=== PATIENT | female | born 1985 ===

== ENCOUNTER 2018-04-17 10:34 | Inpatient (IN) | payer MEDICAID ==
[2018-04-17 12:05] LABS: BASO # 0.1 K/uL (0.0-0.2); BASO % 0.7 % (0.0-2.0); EOS # 0.2 K/uL (0.0-0.7); EOS % 2.7 % (0.0-4.0); LYMPH # 2.4 K/uL (1.0-4.3); MEAN CELL VOLUME 88.2 fl (81.0-99.0); MEAN CORPUSCULAR HEMOGLOBIN 28.5 pg (27.0-31.0); MEAN CORPUSCULAR HGB CONC 32.3 g/dL (33.0-37.0); MEAN PLATELET VOLUME 7.2 fl (7.2-11.7); MONO # 0.5 K/uL (0.0-0.8); NEUT # 3.6 K/uL (1.8-7.0); NEUT % 53.6 % (50.0-75.0); NRBC % 0.2 % (0.0-0.0); RBC 4.22 Mil/uL (3.80-5.20); RED CELL DISTRIBUTION WIDTH 14.6 % (11.5-14.5); WHITE BLOOD COUNT 6.8 K/uL (4.8-10.8)
[2018-04-17 12:11] LABS: ALB/GLOB RATIO 1.2 (1.0-2.1); ALBUMIN 4.2 g/dL (3.5-5.0); ALT/SGPT 42 U/L (9-52); AST/SGOT 36 U/L (14-36); BLOOD UREA NITROGEN 12 mg/dl (7-17); CALCIUM 9.4 mg/dL (8.4-10.2); GFR NON-AFRICAN AMERICAN > 60
--- NOTE | 2018-04-17 14:11 | ED PDOC ---
HPI: General Adult Time Seen by Provider: 04/17/18 10:43 Chief Complaint (Nursing): Lower Extremity Problem/Injury Chief Complaint (Provider): left sided numbness History Per: Patient History/Exam Limitations: no limitations Onset/Duration Of Symptoms: Days (4), Gradual Current Symptoms Are (Timing): Still Present Severity: Moderate Recently: Seen In ED Additional Complaint(s): 33yo female arrives via self c/o Left sided numbness she describes from under left breast encompassing trunk/back and proceeds down left side to Leg in stocking like distribution. She denies weakness, change in gait, balance, temperature sensation, trauma/falls or headache. No prior history of similar issues. No recent illnesses. Patient reports she went to [facility] on saturday had CT brain, EKG and labwork told all was normal. Has not seen PMD yet. PMD [place] in [place] Past Medical History Reviewed: Historical Data, Nursing Documentation, Vital Signs - Medical History PMH: No Chronic Diseases Denies: Chronic Kidney Disease - Family History Family History: States: Unknown Family Hx - Social History Current smoker - smoking cessation education provided: Yes - Home Medications Home Medications: Ambulatory Orders Medication Instructions Recorded RX: No Known Home Med 04/17/18 - Allergies Allergies/Adverse Reactions: Allergies Allergy/AdvReac Type Severity Reaction Status Date / Time No Known Allergies Allergy Verified 04/17/18 10:46 Review of Systems ROS Statement: Except As Marked, All Systems Reviewed And Found Negative Constitutional: Negative for: Fever, Chills ENT: Negative for: Throat Pain Cardiovascular: Negative for: Chest Pain, Palpitations Respiratory: Negative for: Cough, Shortness of Breath Gastrointestinal: Negative for: Nausea, Abdominal Pain Genitourinary Female: Negative for: Dysuria Musculoskeletal: Negative for: Neck Pain, Shoulder Pain, Back Pain, Hand Pain Skin: Negative for: Rash Neurological: Positive for: Numbness. Negative for: Weakness, Incoordination, Change in Speech, Confusion, Seizures, Altered Mental Status, Headache, Dizziness Psych: Negative for: Suicidal ideation Physical Exam - Reviewed Nursing Documentation Reviewed: Yes Vital Signs Reviewed: Yes - Physical Exam Appears: Positive for: Well, Non-toxic, No Acute Distress Head Exam: Positive for: ATRAUMATIC, NORMAL INSPECTION, NORMOCEPHALIC Skin: Positive for: Normal Color, Warm, DRY Eye Exam: Positive for: EOMI, Normal appearance, PERRL ENT: Positive for: Normal ENT Inspection Neck: Positive for: Normal, Painless ROM Cardiovascular/Chest: Positive for: Regular Rate, Rhythm Respiratory: Positive for: CNT, Normal Breath Sounds Gastrointestinal/Abdominal: Positive for: Normal Exam, Soft Back: Positive for: Normal Inspection Extremity: Positive for: Normal ROM Neurologic/Psych: Positive for: Alert, loss prevention detective II-XII, Motor/Sensory Deficits (?soft sensory deficity and loss 2 point discrimination L trunk and leg compared to right. strength 5/5 all ext, speech clear and fluent), Gait (stable). Negative for: Mood/Affect - Laboratory Results Result Diagrams: 04/17/18 11:50 04/17/18 11:50 - ECG ECG: Positive for: Interpreted By Me ECG Rhythm: Positive for: Normal QRS, Sinus Rhythm. 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 Disposition - Clinical Impression Clinical Impression: Paresthesia - Patient ED Disposition Is Patient to be Admitted: Transfer of Care Counseled Patient/Family Regarding: Studies Performed - Disposition Disposition: Transfer of Care Disposition Time: 15:00 Condition: FAIR Patient Signed Over To: Helder Hirsch
--- NOTE | 2018-04-17 15:19 | ED PDOC ---
- Laboratory Results Result Diagrams: 04/17/18 11:50 04/17/18 11:50 - ECG O2 Sat by Pulse Oximetry: 99 - Progress ED Course And Treament: 1519: Took over care from Dr. Dumont. Fu on MRI. Here with paresthesias. Head: IMPRESSION: Asymmetric few white matter lesions in the right centrum semiovale and andrea radiata are nonspecific. The differential considerations include demyelinating disease including multiple sclerosis, migraine headache effect, gliosis, premature early chronic microangiopathic changes, vasculitis and lines disease. Clinical correlation and follow-up is advised. Cervical: IMPRESSION: 1. Desiccation of the C6-7 disc and right paracentral disc protrusion which indents the ventral thecal sac without spinal canal stenosis. 2. No acute fracture or marrow infiltrative process. 3. Normal noncontrast MRI appearance of the thoracic cord without intrinsic signal abnormality. Thoracic: IMPRESSION: No acute fracture, spondylolysis or spondylolisthesis. Mild posterior disc bulges at L4-5 and L5-S1 without spinal canal stenosis. 1847: PCP Dr. Goldman. Spoke with Dr. Leyva. Wants pt. to be admitted for further evaluation considering MRI head findings. Dr. Chairez spoken to and will admit. Dr. Leyva does not want any additional tx/steroids at this time. Wants to confirm dx prior to tx. Disposition - Clinical Impression Clinical Impression: Paresthesia - POA Present On Arrival: None - Disposition Disposition: Hospitalized as Observation Patient Disposition Time: 18:54 Condition: FAIR
--- NOTE | 2018-04-17 17:48 | MRI ---
Date of service: 04/17/2018 PROCEDURE: MRI BRAIN WITHOUT CONTRAST HISTORY: L numbess x3 days COMPARISON: None available. TECHNIQUE: Multiplanar, multisequence MR images of the brain were obtained without intravenous contrast enhancement. FINDINGS: HEMORRHAGE: None DWI: No evidence of an acute or early subacute infarction. BRAIN PARENCHYMA: There are T2/FLAIR hyperintense foci in the right centrum semiovale and andrea radiata. There is no mass, mass effect or abnormal extra-axial fluid collection. The midline sagittal structures are normal. VENTRICLES: The ventricles are normal in size, shape and configuration. CRANIUM: There is normal bone marrow signal pattern. ORBITS: Grossly unremarkable. PARANASAL SINUSES/MASTOIDS: There is a retention cyst/polyp in the left maxillary sinus. There is a small retention cyst/polyp in the right posterior ethmoid air cells. The remaining included paranasal sinuses are clear. VASCULAR SYSTEM: There are normal signal voids in the larger intracranial arteries. OTHER FINDINGS: None. IMPRESSION: Asymmetric few white matter lesions in the right centrum semiovale and andrea radiata are nonspecific. The differential considerations include demyelinating disease including multiple sclerosis, migraine headache effect, gliosis, premature early chronic microangiopathic changes, vasculitis and lines disease. Clinical correlation and follow-up is advised.
--- NOTE | 2018-04-17 18:06 | MRI ---
Date of service: 04/17/2018 PROCEDURE: MR THORACIC SPINE WITHOUT CONTRAST HISTORY: L sided numbness COMPARISON: None available. TECHNIQUE: Multiecho multiplanar sequences were performed through the thoracic spine without the use of intravenous contrast. FINDINGS: ALIGNMENT: There is normal alignment of the thoracic vertebral bodies. There is normal thoracic kyphosis. VERTEBRA: Vertebral body heights are preserved. There is no acute fracture or bone destruction. MARROW: Marrow signal is within normal limits. PARASPINAL SOFT TISSUES: The paraspinous soft tissues are normal. CORD: The thoracic cord is normal in contour, caliber and has normal intrinsic signal. DISCS: There is desiccation of the C6-7 disc and right paracentral disc protrusion at T6-7 which indents the ventral thecal sac without spinal canal stenosis. The remaining disc heights are maintained. OTHER FINDINGS: None. IMPRESSION: 1. Desiccation of the C6-7 disc and right paracentral disc protrusion which indents the ventral thecal sac without spinal canal stenosis. 2. No acute fracture or marrow infiltrative process. 3. Normal noncontrast MRI appearance of the thoracic cord without intrinsic signal abnormality.
--- NOTE | 2018-04-17 18:15 | MRI ---
Date of service: 04/17/2018 PROCEDURE: MR LUMBAR SPINE WITHOUT CONTRAST HISTORY: L sided numbness COMPARISON: None available. TECHNIQUE: Multiecho multiplanar sequences were performed through the lumbar spine without the use of intravenous contrast. FINDINGS: There is normal alignment of the lumbar vertebral bodies. There is normal lumbar lordosis. There is no acute fracture, spondylolysis or spondylolisthesis. Bone marrow signal is within normal limits. The conus medullaris terminates at a normal level and the nerve roots of cauda equina are normal. T12-L1: No disc herniation, spinal canal stenosis or neural foraminal narrowing. L1-2: No disc herniation, spinal canal stenosis or neural foraminal narrowing. L2-3: No disc herniation, spinal canal stenosis or neural foraminal narrowing. L3-4: No disc herniation, spinal canal stenosis or neural foraminal narrowing. L4-5: Mild posterior disc bulge without spinal canal stenosis or neural foraminal narrowing. There is mild facet arthropathy. L5-S1: Mild posterior disc bulge without spinal canal stenosis or neural foraminal narrowing. There is mild facet arthropathy. OTHER FINDINGS: The paraspinous soft tissues are normal. Imaged portion of the retroperitoneum is within normal limits. IMPRESSION: No acute fracture, spondylolysis or spondylolisthesis. Mild posterior disc bulges at L4-5 and L5-S1 without spinal canal stenosis.
[2018-04-17] MEDS ORDERED: Oxycodone/Acetaminophen 5/325 mg Tab ONE (22:27)
--- NOTE | 2018-04-17 22:45 | CARD ---
APPROVED REPORT Date of service: 04/17/2018 EKG Measurement Heart [id number] <Conclusion> Normal sinus rhythm Normal ECG
[2018-04-17] MEDS: Oxycodone/Acetaminophen 5/325 mg Tab PO PRN (22:53)
[2018-04-17] MEDS ORDERED: Dextrose 5%/0.45% NS 1,000 ML IV SCH (23:45)
[2018-04-18] MEDS: Oxycodone/Acetaminophen 5/325 mg Tab PO PRN (06:02)
[2018-04-18 06:43] LABS: INR 1.1; PROTHROMBIN TIME 12.6 Seconds (9.8-13.1)
[2018-04-18 06:45] LABS: PARTIAL THROMBOPLASTIN TIME 37.2 Seconds (25.6-37.1)
[2018-04-18 11:38] LABS: T4 8.03 ug/dl (5.5-11.0)
[2018-04-18 11:51] LABS: T3 1.02 nmol/L (1.49-2.60)
--- NOTE | 2018-04-18 14:27 | CP.PCM.HP ---
History of Present Illness - History of Present Illness History of Present Illness: 33 YR OLD FEMALE ADMITTED BECAUSE OF PARESTHESIAS OF LOWER EXTREMITIES AND MRI COMPARTIBLE WITH MULTIPLE SCLEROSIS. UNREMARKABLE PAST HISTORY/FAMILY HISTORY NO HX OF SMOKING OR ALCOHOL OR DRUG USE Present on Admission - Present on Admission Any Indicators Present on Admission: No Past Patient History - Past Medical History & Family History Past Medical History?: Yes - Past Social History Smoking Status: Light Smoker < 10 Cigarettes Daily - CARDIAC Hx Cardiac Disorders: No Hx Hypertension: No - PULMONARY Hx Respiratory Disorders: No - NEUROLOGICAL Hx Neurological Disorder: No - HEENT Hx HEENT Problems: No - RENAL Hx Chronic Kidney Disease: No - ENDOCRINE/METABOLIC Hx Endocrine Disorders: No - HEMATOLOGICAL/ONCOLOGICAL Hx Blood Disorders: No Hx AIDS: No Hx Human Immunodeficiency Virus (HIV): No - INTEGUMENTARY Hx Dermatological Problems: No - MUSCULOSKELETAL/RHEUMATOLOGICAL Hx Musculoskeletal Disorders: No Hx Falls: No - GASTROINTESTINAL Hx Gastrointestinal Disorders: No - GENITOURINARY/GYNECOLOGICAL Hx Genitourinary Disorders: No - PSYCHIATRIC Hx Psychophysiologic Disorder: No Hx Substance Use: No - SURGICAL HISTORY Hx Surgeries: Yes Hx Section: Yes (x 3) - ANESTHESIA Hx Anesthesia: Yes Hx Anesthesia Reactions: No Meds Allergies/Adverse Reactions: Allergies Allergy/AdvReac Type Severity Reaction Status Date / Time No Known Allergies Allergy Verified 04/17/18 10:46 Physical Exam - Constitutional Appears: No Acute Distress - Head Exam Head Exam: ATRAUMATIC, NORMAL INSPECTION, NORMOCEPHALIC - Eye Exam Eye Exam: EOMI, Normal appearance, PERRL Pupil Exam: NORMAL ACCOMODATION, PERRL - ENT Exam ENT Exam: Mucous Membranes Moist, Normal Exam - Neck Exam Neck exam: Positive for: Normal Inspection - Respiratory Exam Respiratory Exam: Clear to Auscultation Bilateral, NORMAL BREATHING PATTERN - Cardiovascular Exam Cardiovascular Exam: REGULAR RHYTHM - GI/Abdominal Exam GI & Abdominal Exam: Normal Bowel Sounds, Soft. absent: Tenderness - Rectal Exam Rectal Exam: NORMAL INSPECTION - Extremities Exam Extremities exam: Positive for: normal inspection - Back Exam Back exam: NORMAL INSPECTION - Neurological Exam Neurological exam: Alert, CN II-XII Intact, Normal Gait, Oriented x3, Reflexes Normal - Psychiatric Exam Psychiatric exam: Normal Affect, Normal Mood - Skin Skin Exam: Dry, Intact, Normal Color, Warm Results - Vital Signs Recent Vital Signs: Last Vital Signs Temp 98.1 F 04/18/18 08:43 Pulse 74 12/21/18 08:43 Resp 20 04/18/18 08:43 BP 87/57 L 04/18/18 08:43 Pulse Ox 96 04/18/18 08:43 - Labs Result Diagrams: 04/17/18 11:50 04/17/18 11:50 Labs: Laboratory Results - last 24 hr 04/18/18 04/18/18 04/18/18 05:50 11:04 11:04 ESR 46 H PT 12.6 INR 1.1 APTT 37.2 H Vitamin B12 585 Thyroxine (T4) 8.03 Total T3 1.02 L TSH 3rd Generation 0.98 HIV-1 Ab Rapid Screen 04/18/18 11:04 ESR PT INR APTT Vitamin B12 Thyroxine (T4) Total T3 TSH 3rd Generation HIV-1 Ab Rapid Screen Non reactive Assessment & Plan - Assessment and Plan (Free Text) Assessment: PARESTHESIAS--R/O MULTIPLE SCLEROSIS Plan: FOR DIAGNOSTIC LUMBAR PUNCTURE WILL BEGIN IV STEROIDS - Date & Time Date: 04/18/18 Time: 14:28
[2018-04-18] MEDS ORDERED: Lidocaine 1% Inj (20ml) IJ ONE ×2 (15:05→15:45)
[2018-04-18] MEDS ORDERED: Lidocaine 1% Inj (20ml) ONE (15:14)
[2018-04-18] MEDS: methylPREDNISolone 1 GM in Sodium Chloride 0.9% 250 ML IV SCH (15:57)
[2018-04-18 16:30] LABS: FLUID TYPE SPINAL FLUID
--- NOTE | 2018-04-18 16:34 | CP.PCM.PN ---
Subjective - Date & Time of Evaluation Date of Evaluation: 04/18/18 Time of Evaluation: 16:25 - Subjective Subjective: Asked by neurology to help obtain lumbar puncture to help evaluate for possible multiple sclerosis. Risks, benefits, and alternatives discussed with patient. Consent obtained to proceed with lumbar puncture. The patient was positioned in the sitting position on her hospital bed. Her lower back was prepped and draped in standard sterile fashion. The L4-L5 intervertebral space was palpated. The area was injected with 5cc 1% lidocaine for topical anesthesia. A 22g needle was then inserted until CSF was obtained. Patient tolerated the procedure well. Advised the patient to remain hydrated, drink caffeinated beverages often, and to lay flat for 2 hours after the procedure in order to help reduce post-dural puncture headache. Dural puncture should heal on its own in 7 days, but discussed possibility of blood patch or sphenopalatine nerve block if conservatives measures are not helping. Objective - Vital Signs/Intake and Output Vital Signs (last 24 hours): Temp Pulse Resp BP Pulse Ox 99.1 F 87 18 118/68 96 04/18/18 16:10 04/18/18 16:10 04/18/18 16:10 04/18/18 16:10 04/18/18 16:10 - Medications Medications: Current Medications Famotidine (Pepcid) 20 mg PO BID NAOMY Last Admin: 04/18/18 16:00 Dose: 20 mg Dextrose/Sodium Chloride (Dextrose 5%/0.45% Ns 1000 Ml) 1,000 mls @ 40 mls/hr IV .Q24H NAOMY Stop: 04/18/18 23:37 Last Admin: 04/18/18 00:12 Dose: 40 mls/hr Methylprednisolone 1 gm/ (Sodium Chloride) 250 mls @ 62.5 mls/hr IV DAILY NAOMY Stop: 04/20/18 12:59 Last Admin: 04/18/18 15:57 Dose: 62.5 mls/hr Oxycodone/Acetaminophen (Percocet 5/325 Mg Tab) 1 tab PO Q6 PRN PRN Reason: Pain, moderate (4-7) Stop: 04/20/18 22:13 Last Admin: 04/18/18 06:02 Dose: 1 tab - Labs Labs: 04/17/18 11:50 04/17/18 11:50 PT 12.6 Seconds (9.8-13.1) 04/18/18 05:50 INR 1.1 04/18/18 05:50 APTT 37.2 Seconds (25.6-37.1) H 04/18/18 05:50
[2018-04-18 17:29] LABS: CSF APPEARANCE CLEAR/COLORLESS (CLEAR); CSF VOLUME 2 mL (0-1)
[2018-04-18 17:31] LABS: CSF MONO/MACROPHAGE 0 % (0-0)
[2018-04-19] MEDS: methylPREDNISolone 1 GM in Sodium Chloride 0.9% 250 ML IV SCH (09:52)
--- NOTE | 2018-04-19 12:21 | CP.PCM.PN ---
Subjective - Date & Time of Evaluation Date of Evaluation: 04/19/18 Time of Evaluation: 12:21 - Subjective Subjective: STILL C/O PARESTHESIAS OF LOWER EXTREMITIES S/P LP YESTERDAY--SPINAL FLUID RESULTS SO FAR NEGATIVE Objective - Vital Signs/Intake and Output Vital Signs (last 24 hours): Temp Pulse Resp BP Pulse Ox 97.7 F 89 20 143/81 98 04/19/18 08:20 04/19/18 08:20 04/19/18 08:20 04/18/18 23:33 04/19/18 08:20 - Medications Medications: Current Medications Acetaminophen (Tylenol 325mg Tab) 650 mg PO Q4 PRN PRN Reason: Headache Last Admin: 04/19/18 10:33 Dose: 650 mg Famotidine (Pepcid) 20 mg PO BID NAOMY Last Admin: 04/19/18 09:52 Dose: 20 mg Methylprednisolone 1 gm/ (Sodium Chloride) 250 mls @ 62.5 mls/hr IV DAILY NAOMY Stop: 04/20/18 12:59 Last Admin: 04/19/18 09:52 Dose: 62.5 mls/hr Oxycodone/Acetaminophen (Percocet 5/325 Mg Tab) 1 tab PO Q6 PRN PRN Reason: Pain, moderate (4-7) Stop: 04/20/18 22:13 Last Admin: 04/18/18 06:02 Dose: 1 tab - Labs Labs: 04/17/18 11:50 04/17/18 11:50 PT 12.6 Seconds (9.8-13.1) 04/18/18 05:50 INR 1.1 04/18/18 05:50 APTT 37.2 Seconds (25.6-37.1) H 04/18/18 05:50 - Constitutional Appears: No Acute Distress - Head Exam Head Exam: ATRAUMATIC, NORMAL INSPECTION, NORMOCEPHALIC - Eye Exam Eye Exam: EOMI, Normal appearance, PERRL Pupil Exam: NORMAL ACCOMODATION, PERRL - ENT Exam ENT Exam: Mucous Membranes Moist, Normal Exam - Neck Exam Neck Exam: Full ROM, Normal Inspection. absent: Lymphadenopathy - Respiratory Exam Respiratory Exam: Clear to Ausculation Bilateral, NORMAL BREATHING PATTERN - Cardiovascular Exam Cardiovascular Exam: REGULAR RHYTHM, +S1, +S2. absent: Murmur - GI/Abdominal Exam GI & Abdominal Exam: Soft, Normal Bowel Sounds. absent: Tenderness - Rectal Exam Rectal Exam: NORMAL INSPECTION - Extremities Exam Extremities Exam: Full ROM, Normal Capillary Refill, Normal Inspection. absent: Joint Swelling, Pedal Edema - Back Exam Back Exam: NORMAL INSPECTION - Neurological Exam Neurological Exam: Alert, Awake, CN II-XII Intact, Normal Gait, Oriented x3 - Psychiatric Exam Psychiatric exam: Normal Affect, Normal Mood - Skin Skin Exam: Dry, Intact, Normal Color, Warm Assessment and Plan - Assessment and Plan (Free Text) Assessment: PARESTHESIAS--R/O MS Plan: COINTINUE IV STEROIDS--HIGH DOSE NEUROLOGY EVAL
[2018-04-20] MEDS: methylPREDNISolone 1 GM in Sodium Chloride 0.9% 250 ML IV SCH (09:17)
--- NOTE | 2018-04-20 12:04 | CP.PCM.PN ---
Subjective - Date & Time of Evaluation Date of Evaluation: 04/20/18 Time of Evaluation: 12:04 - Subjective Subjective: STILL HAS SOME NUMBNESS OF LEGS BUT GRADUALLY IMPROVING WALKING AROUND WITHOUT ASSISTANCE CASE DISCUSSED WITH PT AND FAMILY AT BEDSIDE Objective - Vital Signs/Intake and Output Vital Signs (last 24 hours): Temp Pulse Resp BP Pulse Ox 98.3 F 87 20 112/66 99 04/20/18 08:14 04/20/18 08:14 04/20/18 08:14 04/20/18 08:14 04/20/18 08:14 - Medications Medications: Current Medications Acetaminophen (Tylenol 325mg Tab) 650 mg PO Q4 PRN PRN Reason: Headache Last Admin: 04/19/18 16:20 Dose: 650 mg Famotidine (Pepcid) 20 mg PO BID NAOMY Last Admin: 04/20/18 10:17 Dose: 20 mg Methylprednisolone 1 gm/ (Sodium Chloride) 250 mls @ 62.5 mls/hr IV DAILY NAOMY Stop: 04/20/18 12:59 Last Admin: 04/20/18 09:17 Dose: 62.5 mls/hr Oxycodone/Acetaminophen (Percocet 5/325 Mg Tab) 1 tab PO Q6 PRN PRN Reason: Pain, moderate (4-7) Stop: 04/20/18 22:13 Last Admin: 04/18/18 06:02 Dose: 1 tab - Labs Labs: 04/17/18 11:50 04/17/18 11:50 PT 12.6 Seconds (9.8-13.1) 04/18/18 05:50 INR 1.1 04/18/18 05:50 APTT 37.2 Seconds (25.6-37.1) H 04/18/18 05:50 - Constitutional Appears: No Acute Distress - Head Exam Head Exam: ATRAUMATIC, NORMAL INSPECTION, NORMOCEPHALIC - Eye Exam Eye Exam: EOMI, Normal appearance, PERRL Pupil Exam: NORMAL ACCOMODATION, PERRL - ENT Exam ENT Exam: Mucous Membranes Moist, Normal Exam - Neck Exam Neck Exam: Full ROM, Normal Inspection. absent: Lymphadenopathy - Respiratory Exam Respiratory Exam: Clear to Ausculation Bilateral, NORMAL BREATHING PATTERN - Cardiovascular Exam Cardiovascular Exam: REGULAR RHYTHM, +S1, +S2. absent: Murmur - GI/Abdominal Exam GI & Abdominal Exam: Soft, Normal Bowel Sounds. absent: Tenderness - Rectal Exam Rectal Exam: NORMAL INSPECTION - Extremities Exam Extremities Exam: Full ROM, Normal Capillary Refill, Normal Inspection. absent: Joint Swelling, Pedal Edema - Back Exam Back Exam: NORMAL INSPECTION - Neurological Exam Neurological Exam: Alert, Awake, CN II-XII Intact, Normal Gait, Oriented x3 - Psychiatric Exam Psychiatric exam: Normal Affect, Normal Mood - Skin Skin Exam: Dry, Intact, Normal Color, Warm Assessment and Plan - Assessment and Plan (Free Text) Assessment: PARESTHESIAS -R/O MS Plan: NTINUE HIGH DOSE IV STEROIDS CASE DISCUSSED WITH NEUROLOGIST
--- NOTE | 2018-04-20 14:01 | CP.PCM.PN ---
Subjective - Date & Time of Evaluation Date of Evaluation: 04/20/18 Time of Evaluation: 13:58 - Subjective Subjective: Ms. Lu was seen and examined today at bedside. She states that she is feeling better today. She did not have any new complaints. Objective - Vital Signs/Intake and Output Vital Signs (last 24 hours): Temp Pulse Resp BP Pulse Ox 98.3 F 87 20 112/66 99 04/20/18 08:14 04/20/18 08:14 04/20/18 08:14 04/20/18 08:14 04/20/18 08:14 - Medications Medications: Current Medications Acetaminophen (Tylenol 325mg Tab) 650 mg PO Q4 PRN PRN Reason: Headache Last Admin: 04/19/18 16:20 Dose: 650 mg Famotidine (Pepcid) 20 mg PO BID NAOMY Last Admin: 04/20/18 10:17 Dose: 20 mg Oxycodone/Acetaminophen (Percocet 5/325 Mg Tab) 1 tab PO Q6 PRN PRN Reason: Pain, moderate (4-7) Stop: 04/20/18 22:13 Last Admin: 04/18/18 06:02 Dose: 1 tab - Labs Labs: 04/17/18 11:50 04/17/18 11:50 PT 12.6 Seconds (9.8-13.1) 04/18/18 05:50 INR 1.1 04/18/18 05:50 APTT 37.2 Seconds (25.6-37.1) H 04/18/18 05:50 - Neurological Exam Neurological Exam: Alert, Awake, CN II-XII Intact, Normal Gait, Oriented x3 Assessment and Plan (1) Multiple sclerosis Assessment & Plan: The patient is improving with solumedrol. She has received 3 doses. She does have an MRI consistent with MS based on Zurita's criteria of 2017. CSF results will help to confirm the diagnosis. I recommend one more dose of solumedrol be given tomorrow, and the patient can be discharged to follow up after. The patient may follow up with outpatient neurology for decision to start a prophylactic medication based on insurance and patient preference. Status: Acute
--- NOTE | 2018-04-20 14:46 | CP.PCM.CON ---
History of Present Illness - History of Present Illness History of Present Illness: Neurology Consultation Note: Ms. Lu is a 33-year-old woman with no significant past medical history, who presented with complaints of hand and feet tingling, numbness, discomfort and a sensation of pain and stretching in her abdomen down to her legs as well as difficulty with ambulation. MRI of the brain demonstrated findings consistent with multiple sclerosis. She underwent lumbar puncture for CSF analysis and was started on solumedrol 1000 mg daily for 3-5 days. Review of Systems - Review of Systems All systems: reviewed and no additional remarkable complaints except Past Patient History - Past Medical History & Family History Past Medical History?: Yes - Past Social History Smoking Status: Light Smoker < 10 Cigarettes Daily - CARDIAC Hx Cardiac Disorders: No Hx Hypertension: No - PULMONARY Hx Respiratory Disorders: No - NEUROLOGICAL Hx Neurological Disorder: No - HEENT Hx HEENT Problems: No - RENAL Hx Chronic Kidney Disease: No - ENDOCRINE/METABOLIC Hx Endocrine Disorders: No - HEMATOLOGICAL/ONCOLOGICAL Hx Blood Disorders: No Hx AIDS: No Hx Human Immunodeficiency Virus (HIV): No - INTEGUMENTARY Hx Dermatological Problems: No - MUSCULOSKELETAL/RHEUMATOLOGICAL Hx Musculoskeletal Disorders: No Hx Falls: No - GASTROINTESTINAL Hx Gastrointestinal Disorders: No - GENITOURINARY/GYNECOLOGICAL Hx Genitourinary Disorders: No - PSYCHIATRIC Hx Psychophysiologic Disorder: No Hx Substance Use: No - SURGICAL HISTORY Hx Surgeries: Yes Hx Section: Yes (x 3) - ANESTHESIA Hx Anesthesia: Yes Hx Anesthesia Reactions: No Meds Allergies/Adverse Reactions: Allergies Allergy/AdvReac Type Severity Reaction Status Date / Time No Known Allergies Allergy Verified 04/17/18 10:46 - Medications Medications: Current Medications Acetaminophen (Tylenol 325mg Tab) 650 mg PO Q4 PRN PRN Reason: Headache Last Admin: 04/19/18 16:20 Dose: 650 mg Famotidine (Pepcid) 20 mg PO BID NAOMY Last Admin: 04/20/18 10:17 Dose: 20 mg Oxycodone/Acetaminophen (Percocet 5/325 Mg Tab) 1 tab PO Q6 PRN PRN Reason: Pain, moderate (4-7) Stop: 04/20/18 22:13 Last Admin: 04/18/18 06:02 Dose: 1 tab Physical Exam - Constitutional Appears: Well - Head Exam Head Exam: ATRAUMATIC, NORMAL INSPECTION, NORMOCEPHALIC - Eye Exam Eye Exam: EOMI, Normal appearance, PERRL Pupil Exam: NORMAL ACCOMODATION, PERRL - ENT Exam ENT Exam: Mucous Membranes Moist, Normal Exam - Neck Exam Neck exam: Positive for: Normal Inspection - Respiratory Exam Respiratory Exam: Clear to Auscultation Bilateral, NORMAL BREATHING PATTERN - Cardiovascular Exam Cardiovascular Exam: REGULAR RHYTHM, +S1, +S2 - GI/Abdominal Exam GI & Abdominal Exam: Normal Bowel Sounds, Soft. absent: Tenderness - Extremities Exam Extremities exam: Positive for: normal inspection - Back Exam Back exam: NORMAL INSPECTION - Neurological Exam Neurological exam: Alert, CN II-XII Intact, Normal Gait, Oriented x3 Additional comments: Reflexes are brisk throughout. Decreased sensation to LT/P on the left side up to the abdomen - Psychiatric Exam Psychiatric exam: Normal Affect, Normal Mood - Skin Skin Exam: Dry, Intact, Normal Color, Warm Results - Vital Signs Recent Vital Signs: Last Vital Signs Temp 98.3 F 04/20/18 08:14 Pulse 87 04/20/18 08:14 Resp 20 04/20/18 08:14 BP 112/66 04/20/18 08:14 Pulse Ox 99 04/20/18 08:14 - Labs Result Diagrams: 04/17/18 11:50 04/17/18 11:50 Labs: Laboratory Results - last 24 hr 04/18/18 11:04 RBC Folate 538 Assessment & Plan (1) Multiple sclerosis Assessment and Plan: Will initiate treatment with solumedrol and follow up on CSF results. She should be started on Tecfidera as an outpatient when we follow up with her in the neurology office. PT/OT is also indicated at this time. Thank you for this consultation. Status: Acute
[2018-04-21 08:25] VITALS: BP 115/72; PULSE 76; RESP 20; TEMP 97.9; O2SAT 94
[2018-04-21] MEDS ORDERED: methylPREDNISolone 1 GM in Sodium Chloride 0.9% 250 ML IV STA (08:59)
--- NOTE | 2018-04-21 10:54 | CP.PCM.DIS ---
Provider - Provider Date of Admission: 04/19/18 12:29 Attending physician: Jeremy Chairez MD Consults: 04/17/18 18:53 Neurology Consult Stat Comment: Consulting Provider: Aman Leyva Consulting Physician: Aman Leyva Reason for Consult: paresthesias 04/18/18 14:21 Anesthesiology Consult Routine Comment: Consulting Provider: Cathleen Navarro Consulting Physician: Cathleen Navarro Reason for Consult: new dx MS; for Lumbar puncture Time Spent in preparation of Discharge (in minutes): 30 Diagnosis - Discharge Diagnosis (1) Multiple sclerosis Status: Acute (2) Paresthesia Status: Acute Hospital Course - Lab Results Lab Results: Micro Results 04/18/18 16:00 Cerebral Spinal Fluid Gram Stain - Final 04/18/18 16:00 Cerebral Spinal Fluid CSF Culture - Preliminary NO GROWTH AFTER 2 DAYS Most Recent Lab Values WBC 6.8 K/uL (4.8-10.8) 04/17/18 11:50 RBC 4.22 Mil/uL (3.80-5.20) 04/17/18 11:50 Hgb 12.0 g/dL (12.0-16.0) 04/17/18 11:50 Hct 37.2 % (34.0-47.0) 04/17/18 11:50 MCV 88.2 fl (81.0-99.0) 04/17/18 11:50 MCH 28.5 pg (27.0-31.0) 04/17/18 11:50 MCHC 32.3 g/dL (33.0-37.0) L 04/17/18 11:50 RDW 14.6 % (11.5-14.5) H 04/17/18 11:50 Plt Count 501 K/uL (130-400) H 04/17/18 11:50 MPV 7.2 fl (7.2-11.7) 04/17/18 11:50 Neut % (Auto) 53.6 % (50.0-75.0) 04/17/18 11:50 Lymph % (Auto) 35.0 % (20.0-40.0) 04/17/18 11:50 [place] % (Auto) 8.0 % (0.0-10.0) 04/17/18 11:50 Eos % (Auto) 2.7 % (0.0-4.0) 04/17/18 11:50 Baso % (Auto) 0.7 % (0.0-2.0) 04/17/18 11:50 Neut # (Auto) 3.6 K/uL (1.8-7.0) 04/17/18 11:50 Lymph # (Auto) 2.4 K/uL (1.0-4.3) 04/17/18 11:50 [place] # (Auto) 0.5 K/uL (0.0-0.8) 04/17/18 11:50 Eos # (Auto) 0.2 K/uL (0.0-0.7) 04/17/18 11:50 Baso # (Auto) 0.1 K/uL (0.0-0.2) 04/17/18 11:50 ESR 46 mm/hr (0-20) H 04/18/18 11:04 PT 12.6 Seconds (9.8-13.1) 04/18/18 05:50 INR 1.1 04/18/18 05:50 APTT 37.2 Seconds (25.6-37.1) H 04/18/18 05:50 Sodium 141 mmol/l (132-148) 04/17/18 11:50 Potassium 4.4 MMOL/L (3.6-5.0) 04/17/18 11:50 Chloride 106 mmol/L (98-107) 04/17/18 11:50 Carbon Dioxide 26 mmol/L (22-30) 04/17/18 11:50 Anion Gap 13 (10-20) 04/17/18 11:50 BUN 12 mg/dl (7-17) 04/17/18 11:50 Creatinine 0.6 mg/dl (0.7-1.2) L 04/17/18 11:50 Est GFR ( Amer) > 60 04/17/18 11:50 Est GFR (Non-Af Amer) > 60 04/17/18 11:50 Random Glucose 85 mg/dL (65-105) 04/17/18 11:50 Calcium 9.4 mg/dL (8.4-10.2) 04/17/18 11:50 Magnesium 2.0 MG/DL (1.6-2.3) 04/17/18 11:50 Total Bilirubin 0.3 mg/dl (0.2-1.3) 04/17/18 11:50 AST 36 U/L (14-36) 04/17/18 11:50 ALT 42 U/L (9-52) 04/17/18 11:50 Alkaline Phosphatase 95 U/L (38-126) 04/17/18 11:50 Total Creatine Kinase 225 U/L (30-135) H 04/17/18 11:50 Total Protein 7.8 G/DL (6.3-8.2) 04/17/18 11:50 Albumin 4.2 g/dL (3.5-5.0) 04/17/18 11:50 Globulin 3.6 gm/dL (2.2-3.9) 04/17/18 11:50 Albumin/Globulin Ratio 1.2 (1.0-2.1) 04/17/18 11:50 Vitamin B12 585 pg/mL (239-931) 04/18/18 11:04 RBC Folate 538 ng/mL RBC (>280) 04/18/18 11:04 Thyroxine (T4) 8.03 ug/dl (5.5-11.0) 04/18/18 11:04 Total T3 1.02 nmol/L (1.49-2.60) L 04/18/18 11:04 TSH 3rd Generation 0.98 mIU/ML (0.46-4.68) 04/18/18 11:04 Fluid Type Spinal fluid 04/18/18 16:00 CSF Volume 2 mL (0-1) H 04/18/18 16:00 CSF Appearance Clear/colorless (CLEAR) 04/18/18 16:00 CSF WBC 3.0 /mm3 (0.0-5.0) 04/18/18 16:00 CSF RBC 4.0 /mm3 (0.0-0.0) H 04/18/18 16:00 CSF Total Cell Counted TEST NOT PERFORMED 04/18/18 16:00 CSF Neutrophils 0 % (0-0) 04/18/18 16:00 CSF Lymphocytes 1.0 % (0-0) H 04/18/18 16:00 CSF Monos/Macrophages 0 % (0-0) 04/18/18 16:00 CSF Comment None 04/18/18 16:00 CSF Glucose 55 mg/dL (40-70) 04/18/18 16:00 CSF Total Protein 31.0 mg/dL (12-60) 04/18/18 16:00 FACUNDO Screen Negative (Negative) 04/18/18 11:04 Lyme Disease Screen <0.90 index 04/18/18 11:04 HIV-1 Ab Rapid Screen Non reactive (NON REAC) 04/18/18 11:04 - Hospital Course Hospital Course: FEELS BETTER PARESTHESIAS IMPROVED Discharge Exam - Head Exam Head Exam: ATRAUMATIC, NORMAL INSPECTION, NORMOCEPHALIC - Eye Exam Eye Exam: EOMI, Normal appearance, PERRL Pupil Exam: NORMAL ACCOMODATION, PERRL - GI/Abdominal Exam GI & Abdominal Exam: Normal Bowel Sounds - Rectal Exam Rectal Exam: NORMAL INSPECTION - Neurological Exam Neurological exam: Alert, CN II-XII Intact, Normal Gait, Oriented x3, Reflexes Normal - Psychiatric Exam Psychiatric exam: Normal Affect, Normal Mood - Skin Skin Exam: Dry, Intact, Normal Color, Warm Discharge Plan - Discharge Medications Prescriptions: Gabapentin [Neurontin] 100 mg PO TID #90 cap Famotidine [Pepcid] 20 mg PO BID #20 tab - Follow Up Plan Condition: FAIR Disposition: HOME/ ROUTINE Instructions: Paresthesias (DC) Additional Instructions: follow up with primary MD 1 week Referrals: Aman Leyva MD [Medical Doctor] -
[2018-04-23 18:57] LABS: IGG INDEX CSF 0.71 (<0.66); SYNTHESIS RATE IGG CSF 2.4 mg/24 h (-9.9-3.3)
[2018-04-24 11:14] LABS: ST. LOUIS IgG <1:4; ST. LOUIS IgM <1:4; WESTERN EQUINE IgM <1:4
== END 2018-04-21 14:45 | disposition home or self-care (01) | DRG 13 ==
LOC: H.ER 10:34 → H.ERHOLD 18:50 → H.MEDSURG1 23:03 → OBSVTOIN 04-19 12:29
PROVIDERS: ADMIT Internal Medicine Pulmonary Disease; ATTEND Internal Medicine Pulmonary Disease
PROC: 009U3ZX Drainage of Spinal Canal, Percutaneous Approach, Diagnostic (ICD-10-PCS; principal; 2018-04-18)
DX: G35 Multiple sclerosis (principal); R20.2 Paresthesia of skin; F17.210 Nicotine dependence, cigarettes, uncomplicated